=== PATIENT | male | born 1975 | race Caucasian/White ===

== ENCOUNTER 2018-05-03 10:27 | Inpatient (IN) | payer OTHER ==
[2018-05-03 11:26] VITALS: BMI 20.6
--- NOTE | 2018-05-03 11:30 | HP ---
CIWA Score Nausea/Vomitin Muscle Tremors: 3 Anxiety: 4-Mod. Anxious/Guarded Agitation: 0-Normal Activity Paroxysmal Sweats: No Perspiration Orientation: 2-Disoriented Date<2 days Tacttile Disturbances: 0-None Auditory Disturbances: 0-None Visual Disturbances: 0-None Headache: 2-Mild CIWA-Ar Total Score: 13 - Admission Criteria [facility] Guidelines: Admission for Medically Managed Detox: Requires at least one of the followin. CIWA greater than 12 2. Seizures within the past 24 hours 3. Delirium tremens within the past 24 hours 4. Hallucinations within the past 24 hours 5. Acute intervention needed for co occurring medical disorder 6. Acute intervention needed for co occurring psychiatric disorder 7. Severe withdrawal that cannot be handled at a lower level of care (continued vomiting, continued diarrhea, abnormal vital signs) requiring intravenous medication and/or fluids 8. Patient presents the following: CIWA greater than 12 Admission Criteria Met: Admission criteria met Admission ROS [facility] - HPI Chief Complaint: I shake too much if I don't drink, my animal assisted therapist said I need to come for detox, was throwing up, shaking too much, I couldn't handle trying to stop, I have to drink to stop the shaking. Allergies/Adverse Reactions: Allergies Allergy/AdvReac Type Severity Reaction Status Date / Time No Known Allergies Allergy Verified 05/03/18 11:29 History of Present Illness: 43 yo gentleman sent her for detox by outpatient program CASES rn social services as patient continued to drink as an outpatient. Denies seizures, unemployed, lives with parents. States he gets very sick, shaky unless he has a drink. States this is his first time in detox. Patient currently with low blood pressure - will hold BP meds for now. Exam Limitations: No Limitations - Ebola screening Have you traveled outside of the country in the last 21 days: No (N) Have you had contact with anyone from an Ebola affected area: No Have you been sick,other than usual withdrawal symptoms: No Do you have a fever: No - Review of Systems Constitutional: Loss of Appetite, Malaise, Changes in sleep EENT: reports: Blurred Vision Respiratory: reports: No Symptoms reported Cardiac: reports: No Symptoms Reported GI: reports: Nausea, Poor Appetite, Abdominal cramping : reports: Frequency Musculoskeletal: reports: No Symptoms Reported Integumentary: reports: No Symptoms Reported Neuro: reports: Headache, Weakness Endocrine: reports: No Symptoms Reported Hematology: reports: No Symptoms Reported Psychiatric: reports: Judgement Intact, Mood/Affect Appropiate, Anxious Other Systems: Reviewed and Negative Patient History - Patient Medical History Hx Anemia: No Hx Asthma: No Hx Cancer: No Hx Cardiac Disorders: No Hx Congestive Heart Failure: No Hx Hypertension: Yes (on meds) Hx Hypercholesterolemia: No Hx Pacemaker: No Hx Seizures: No Hx Diabetes: No Hx Gastrointestinal Disorders: No Hx Liver Disease: No Hx Genitourinary Disorders: No Hx Sexually Transmitted Disorders: No Hx Renal Disease (ESRD): No Hx Thyroid Disease: No Hx Human Immunodeficiency Virus (HIV): No Hx Hepatitis C: No Hx Depression: No Hx Suicide Attempt: No Hx Bipolar Disorder: No Hx Schizophrenia: No - Patient Surgical History Past Surgical History: No - PPD History Previous Implant?: Yes Documented Results: Negative w/o proof Implanted On Prior [facility] Admission?: No PPD to be Administered?: Yes - Reproductive History Patient is a Female of Child Bearing Age (11 -55 yrs old): No (male) - Smoking Cessation Smoking history: Never smoked - Substance & Tx. History Hx Alcohol Use: Yes Hx Substance Use: No Substance Use Type: Alcohol Hx Substance Use Treatment: Yes (outpatient rehab) - Substances Abused alcohol Route: Oral Frequency: Daily Amount used: three half pints ruben Age of first use: 14 Date of Last Use: 05/02/18 Family Disease History - Family Disease History Family Disease History: Diabetes: Father (living, ), Other: Father, Mother ( living - ), Brother (one - living), Daughter (one age 15, healthy) Admission Physical Exam S - Vital Signs Vital Signs: Vital Signs - 24 hr 05/03/18 11:24 Temperature 97.7 F Pulse Rate 90 Respiratory 18 Rate Blood Pressure 95/68 - Physical General Appearance: Yes: Nourished, Appropriately Dressed, Mild Distress, Thin, Anxious HEENTM: Yes: EOMI, Hearing grossly Normal, Normocephalic, Normal Voice, Pharynx Normal Respiratory: Yes: Normal Breath Sounds, No Respiratory Distress Neck: Yes: No masses,lesions,Nodules Breast: Yes: Breast Exam Deferred Cardiology: Yes: Regular Rhythm, Regular Rate Abdominal: Yes: Flat, Soft Genitourinary: Yes: Within Normal Limits Back: Yes: Normal Inspection Musculoskeletal: Yes: full range of Motion, Gait Steady Extremities: Yes: Normal Inspection, Normal Range of Motion, Non-Tender Neurological: Yes: Alert, Motor Strength 5/5, Normal Mood/Affect, Normal Response Integumentary: Yes: Normal Color, Warm Lymphatic: Yes: Within Normal Limits - Diagnostic (1) Alcohol dependence with uncomplicated withdrawal Current Visit: Yes Status: Chronic (2) HTN (hypertension) Current Visit: Yes Status: Chronic Qualifiers: Hypertension type: essential hypertension Qualified Code(s): I10 - Essential (primary) hypertension Cleared for Admission [facility] - Detox or Rehab [facility] Level of Care: Medically Managed Detox Regimen/Protocol: Librium [facility] Breath Alcohol Content Breath Alcohol Content: 0.259 Urine Drug Screen - Results Drug Screen Negative: Yes
[2018-05-03] MEDS ORDERED: ACETAMINOPHEN 325 MG TABLET (FP) PO PRN (11:43)
[2018-05-03] MEDS ORDERED: MENTHOL/PHENOL 1 EACH UD MM PRN (11:43)
[2018-05-03] MEDS ORDERED: MAGNESIUM HYDROX 2400MG/30ML ORAL SUSPENSION 30 ML CUP PO PRN (11:43)
[2018-05-03] MEDS ORDERED: P-EPHED 60MG/TRIPROLIDI 2.5MG TABLET PO PRN (11:43)
[2018-05-03] MEDS ORDERED: LOPERAMIDE HCL 2 MG CAPSULE PO PRN (11:43)
[2018-05-03] MEDS ORDERED: MAGNESIUM CITRATE 300 ML BOTTLE PO PRN (11:43)
[2018-05-03] MEDS ORDERED: MAG HYDROX/AL HYDROX/SIMETH 30 ML UNIT-DOSE CUP PO PRN (11:43)
[2018-05-03] MEDS ORDERED: guaiFENesin/D-METHORPHAN HB 10 ML UNIT-DOSE CUPS PO PRN (11:43)
[2018-05-03] MEDS ORDERED: IBUPROFEN 400 MG TABLET (FP) PO PRN (11:43)
[2018-05-03] MEDS: chlordiazePOXIDE HCL 25 MG CAPSULE PO PRN ×2 (14:34→17:50)
[2018-05-03] MEDS: chlordiazePOXIDE HCL 25 MG CAPSULE PO SCH ×2 (17:00→22:23)
[2018-05-03] MEDS: MELATONIN 5 MG TABLETS PO PRN (22:23)
[2018-05-03] MEDS: THIAMINE HCL 100 MG TABLET (FP) PO SCH (22:23)
[2018-05-03 22:49] LABS: URINE APPEARANCE SLCLOUDY; URINE BILIRUBIN NEGATIVE (<2.0 mg/dL); URINE COLOR YELLOW; URINE GLUCOSE (UA) NEGATIVE (NEGATIVE); URINE KETONE NEGATIVE (NEGATIVE); URINE LEUK ESTERASE NEGATIVE (NEGATIVE); URINE NITRITE NEGATIVE (NEGATIVE); URINE PROTEIN 1+ (NEGATIVE); URINE UROBILINOGEN 4.0 E.U/dl mg/dL (0.2-1.0)
[2018-05-03 22:56] LABS: EPI CELLS RARE /HPF (FEW); URINE HYALINE CAST 4 /lpf; URINE MUCUS RARE
[2018-05-04] MEDS: chlordiazePOXIDE HCL 25 MG CAPSULE PO SCH ×4 (05:52→22:22)
--- NOTE | 2018-05-04 09:58 | PN ---
S CIWA - CIWA Score Nausea/Vomitin-Mild Nausea/No Vomiting Muscle Tremors: 3 Anxiety: 1-Mildly Anxious Agitation: 3 Paroxysmal Sweats: 1-Minimal Palms Moist Orientation: 1-Uncertain about Date Tacttile Disturbances: 1-Very Mild Itch/Numbness Auditory Disturbances: 1-Very Mild Visual Disturbances: 0-None Headache: 1-Very Mild CIWA-Ar Total Score: 13 [facility] Progress Note (SOAP) Subjective: tremor anxiety sweat trouble sleep at night Objective: 05/04/18 09:57 Vital Signs Temperature 98.2 F 05/04/18 09:25 Pulse Rate 111 H 05/04/18 09:25 Respiratory Rate 16 05/04/18 09:25 Blood Pressure 103/66 05/04/18 09:25 O2 Sat by Pulse Oximetry (%) Laboratory Last Values Urine Color Yellow 05/03/18 22:30 Urine Appearance Slcloudy 05/03/18 22:30 Urine pH 5.0 (5.0-8.0) 05/03/18 22:30 Ur Specific [place] 1.012 (1.010-1.035) 05/03/18 22:30 Urine Protein 1+ (NEGATIVE) H 05/03/18 22:30 Urine Glucose (UA) Negative (NEGATIVE) 05/03/18 22:30 Urine Ketones Negative (NEGATIVE) 05/03/18 22:30 Urine Blood Negative (NEGATIVE) 05/03/18 22:30 Urine Nitrite Negative (NEGATIVE) 05/03/18 22:30 Urine Bilirubin Negative (<2.0 mg/dL) 05/03/18 22:30 Urine Urobilinogen 4.0 e.u/dl mg/dL (0.2-1.0) 05/03/18 22:30 Ur Leukocyte Esterase Negative (NEGATIVE) 05/03/18 22:30 Urine WBC (Auto) 5 /hpf (3-5) 05/03/18 22:30 Urine RBC (Auto) <1 /hpf (0-3) 05/03/18 22:30 Ur Epithelial Cells Rare /HPF (FEW) 05/03/18 22:30 Hyaline Casts 4 /lpf 05/03/18 22:30 Urine Mucus Rare 05/03/18 22:30 lab noted Assessment: 05/04/18 09:57 withdrawal sx Plan: continue detox
[2018-05-04] MEDS: PRENATAL VITAMINS W/ FOLIC ACID TABLET (FP) PO SCH (10:06)
[2018-05-04 10:30] LABS: HEMATOCRIT 31.5 % (35.4-49); HEMOGLOBIN 10.2 GM/dL (11.7-16.9); MCH 35.1 pg (25.7-33.7); MCHC 32.3 g/dl (32.0-35.9); MEAN CELL VOLUME 108.5 fl (80-96); MEAN PLT VOLUME 8.9 fl (7.5-11.1); PLATELET COUNT 107 K/MM3 (134-434); RDW 16.1 % (11.9-15.9); WHITE BLOOD COUNT 4.2 K/mm3 (4.0-10.0)
[2018-05-04 10:47] LABS: ALK PHOS 48 U/L (45-117); ANION GAP 12 MMOL/L (8-16); BILIRUBIN,TOTAL 0.6 mg/dL (0.2-1); BLOOD UREA NITROGEN 24 mg/dL (7-18); CALCIUM 8.2 mg/dL (8.5-10.1); CHLORIDE 102 mmol/L (98-107); CO2 24 mmol/L (21-32); CREATININE 1.6 mg/dL (0.55-1.3); GLUCOSE,RANDOM 99 mg/dL (74-106); POTASSIUM 3.2 mmol/L (3.5-5.1); SGOT/AST 72 U/L (15-37); SGPT/ALT 42 U/L (13-61); SODIUM 138 mmol/L (136-145); TOT PROT 6.1 g/dl (6.4-8.2)
--- NOTE | 2018-05-04 13:47 | EKG ---
Test Reason : Blood Pressure : / mmHG Vent. Rate : 090 BPM Atrial Rate : 090 BPM P-R Int : 152 ms QRS Dur : 074 ms QT Int : 368 ms P-R-T Axes : 066 040 056 degrees QTc Int : 450 ms NORMAL SINUS RHYTHM NORMAL ECG NO PREVIOUS ECGS AVAILABLE Confirmed by WAGNER GASTELUM MD ([id number]) on 05/04/2018 1:46:33 PM Referred By: Confirmed By:WAGNER GASTELUM MD
[2018-05-04] MEDS: chlordiazePOXIDE HCL 25 MG CAPSULE PO PRN (15:42)
--- NOTE | 2018-05-04 17:11 | PN ---
[facility] Progress Note Note: called by nurse stated patient k is 3.2 Laboratory Last Values WBC 4.2 K/mm3 (4.0-10.0) 05/04/18 07:30 RBC 2.90 M/mm3 (4.00-5.60) L 05/04/18 07:30 Hgb 10.2 GM/dL (11.7-16.9) L 05/04/18 07:30 Hct 31.5 % (35.4-49) L 05/04/18 07:30 MCV 108.5 fl (80-96) H 05/04/18 07:30 MCH 35.1 pg (25.7-33.7) H 05/04/18 07:30 MCHC 32.3 g/dl (32.0-35.9) 05/04/18 07:30 RDW 16.1 % (11.9-15.9) H 05/04/18 07:30 Plt Count 107 K/MM3 (134-434) L 05/04/18 07:30 MPV 8.9 fl (7.5-11.1) 05/04/18 07:30 Sodium 138 mmol/L (136-145) 05/04/18 07:30 Potassium 3.2 mmol/L (3.5-5.1) L 05/04/18 07:30 Chloride 102 mmol/L (98-107) 05/04/18 07:30 Carbon Dioxide 24 mmol/L (21-32) 05/04/18 07:30 Anion Gap 12 MMOL/L (8-16) 05/04/18 07:30 BUN 24 mg/dL (7-18) H 05/04/18 07:30 Creatinine 1.6 mg/dL (0.55-1.3) H 05/04/18 07:30 Creat Clearance w eGFR 47.19 (>60) 05/04/18 07:30 Random Glucose 99 mg/dL (74-106) 05/04/18 07:30 Calcium 8.2 mg/dL (8.5-10.1) L 05/04/18 07:30 Total Bilirubin 0.6 mg/dL (0.2-1) 05/04/18 07:30 AST 72 U/L (15-37) H 05/04/18 07:30 ALT 42 U/L (13-61) 05/04/18 07:30 Alkaline Phosphatase 48 U/L (45-117) 05/04/18 07:30 Total Protein 6.1 g/dl (6.4-8.2) L 05/04/18 07:30 Albumin 3.0 g/dl (3.4-5.0) L 05/04/18 07:30 Urine Color Yellow 05/03/18 22: Urine Appearance Slcloudy 05/03/18 22: Urine pH 5.0 (5.0-8.0) 05/03/18 22:30 Ur Specific [place] 1.012 (1.010-1.035) 05/03/18 22: Urine Protein 1+ (NEGATIVE) H 05/03/18 22:30 Urine Glucose (UA) Negative (NEGATIVE) 05/03/18 22:30 Urine Ketones Negative (NEGATIVE) 05/03/18 22:30 Urine Blood Negative (NEGATIVE) 05/03/18 22:30 Urine Nitrite Negative (NEGATIVE) 05/03/18 22:30 Urine Bilirubin Negative (<2.0 mg/dL) 05/03/18 22:30 Urine Urobilinogen 4.0 e.u/dl mg/dL (0.2-1.0) 05/03/18 22:30 Ur Leukocyte Esterase Negative (NEGATIVE) 05/03/18 22:30 Urine WBC (Auto) 5 /hpf (3-5) 05/03/18 22:30 Urine RBC (Auto) <1 /hpf (0-3) 05/03/18 22:30 Ur Epithelial Cells Rare /HPF (FEW) 05/03/18 22:30 Hyaline Casts 4 /lpf 05/03/18 22:30 Urine Mucus Rare 05/03/18 22:30 RPR Titer Nonreactive (NONREACTIVE) 05/04/18 07:30 k dure 20 meq po now then daily encourage orl fluid repeat cmp in am
[2018-05-04] MEDS ORDERED: POTASSIUM CHLORIDE TABS 20 MEQ TABLET.ER (FP) PO ONE (17:15)
[2018-05-04] MEDS: THIAMINE HCL 100 MG TABLET (FP) PO SCH (22:22)
[2018-05-04] MEDS: MELATONIN 5 MG TABLETS PO PRN (22:23)
[2018-05-05] MEDS: chlordiazePOXIDE HCL 25 MG CAPSULE PO SCH ×2 (08:03→10:27)
[2018-05-05] MEDS: POTASSIUM CHLORIDE TABS 20 MEQ TABLET.ER (FP) PO SCH (10:26)
[2018-05-05] MEDS: PRENATAL VITAMINS W/ FOLIC ACID TABLET (FP) PO SCH (10:26)
--- NOTE | 2018-05-05 10:52 | PN ---
S CIWA - CIWA Score Nausea/Vomitin-Mild Nausea/No Vomiting Muscle Tremors: 3 Anxiety: 2 Agitation: 1-Slight > Activity Paroxysmal Sweats: 2 Orientation: 0-Oriented Tacttile Disturbances: 0-None Auditory Disturbances: 0-None Visual Disturbances: 0-None Headache: 0-None Present CIWA-Ar Total Score: 9 [facility] Progress Note (SOAP) Subjective: PATIENT C/O SHAKES, SWEATING AND ANXIETY. Objective: 05/05/18 10:51 Vital Signs Temperature 98.1 F 05/05/18 09:06 Pulse Rate 102 H 05/05/18 09:06 Respiratory Rate 16 05/05/18 09:06 Blood Pressure 95/56 L 05/05/18 09:06 O2 Sat by Pulse Oximetry (%) Vital Signs Temperature 98.1 F 05/05/18 09:06 Pulse Rate 102 H 05/05/18 09:06 Respiratory Rate 16 05/05/18 09:06 Blood Pressure 95/56 L 05/05/18 09:06 O2 Sat by Pulse Oximetry (%) Laboratory Tests 05/03/18 05/04/18 05/04/18 22:30 07:30 07:30 WBC 4.2 RBC 2.90 L Hgb 10.2 L Hct 31.5 L MCV 108.5 H MCH 35.1 H MCHC 32.3 RDW 16.1 H Plt Count 107 L MPV 8.9 Sodium 138 Potassium 3.2 L Chloride 102 Carbon Dioxide 24 Anion Gap 12 BUN 24 H Creatinine 1.6 H Creat Clearance w eGFR 47.19 Random Glucose 99 Calcium 8.2 L Total Bilirubin 0.6 AST 72 H ALT 42 Alkaline Phosphatase 48 Total Protein 6.1 L Albumin 3.0 L Urine Color Yellow Urine Appearance Slcloudy Urine pH 5.0 Ur Specific [place] 1.012 Urine Protein 1+ H Urine Glucose (UA) Negative Urine Ketones Negative Urine Blood Negative Urine Nitrite Negative Urine Bilirubin Negative Urine Urobilinogen 4.0 e.u/dl Ur Leukocyte Esterase Negative Urine WBC (Auto) 5 Urine RBC (Auto) <1 Ur Epithelial Cells Rare Hyaline Casts 4 Urine Mucus Rare RPR Titer 05/04/18 07:30 WBC RBC Hgb Hct MCV MCH MCHC RDW Plt Count MPV Sodium Potassium Chloride Carbon Dioxide Anion Gap BUN Creatinine Creat Clearance w eGFR Random Glucose Calcium Total Bilirubin AST ALT Alkaline Phosphatase Total Protein Albumin Urine Color Urine Appearance Urine pH Ur Specific [place] Urine Protein Urine Glucose (UA) Urine Ketones Urine Blood Urine Nitrite Urine Bilirubin Urine Urobilinogen Ur Leukocyte Esterase Urine WBC (Auto) Urine RBC (Auto) Ur Epithelial Cells Hyaline Casts Urine Mucus RPR Titer Nonreactive PE: ALERT AND ORIENTED X 3 ANXIOUS MILD FACIAL MOISTURE AMB AD ANGELINA EXT FULL ROM, +_TREMORS Assessment: 05/05/18 10:52 WITHDRAWAL SX Plan: CONTINUE DETOX ENCOURAGE ORAL FLUIDS REPEAT POTASSIUM LEVEL FOR D/C IN AM CONTINUE TO MONITOR
[2018-05-05 11:09] LABS: ALBUMIN 2.9 g/dl (3.4-5.0); ALK PHOS 50 U/L (45-117); ANION GAP 12 MMOL/L (8-16); BILIRUBIN,TOTAL 0.4 mg/dL (0.2-1); BLOOD UREA NITROGEN 20 mg/dL (7-18); CALCIUM 8.8 mg/dL (8.5-10.1); CHLORIDE 103 mmol/L (98-107); CO2 23 mmol/L (21-32); CREATININE 1.1 mg/dL (0.55-1.3); GLUCOSE,RANDOM 97 mg/dL (74-106); POTASSIUM 3.5 mmol/L (3.5-5.1); SGOT/AST 45 U/L (15-37); SGPT/ALT 36 U/L (13-61); SODIUM 138 mmol/L (136-145); TOT PROT 5.9 g/dl (6.4-8.2)
[2018-05-05] MEDS: chlordiazePOXIDE 5 MG CAPSULE PO SCH ×2 (17:27→22:07)
[2018-05-05] MEDS: MELATONIN 5 MG TABLETS PO PRN (22:07)
[2018-05-05] MEDS: THIAMINE HCL 100 MG TABLET (FP) PO SCH (22:07)
[2018-05-06] MEDS: chlordiazePOXIDE 5 MG CAPSULE PO SCH ×2 (06:18→10:11)
[2018-05-06] MEDS: PRENATAL VITAMINS W/ FOLIC ACID TABLET (FP) PO SCH (10:10)
[2018-05-06] MEDS: POTASSIUM CHLORIDE TABS 20 MEQ TABLET.ER (FP) PO SCH (10:10)
--- NOTE | 2018-05-06 10:15 | PN ---
[facility] Progress Note (SOAP) Subjective: interrupted sleep sweats Objective: 05/06/18 10:14 Vital Signs Temperature 97.7 F 05/06/18 09:20 Pulse Rate 93 H 05/06/18 09:20 Respiratory Rate 18 05/06/18 09:20 Blood Pressure 103/73 05/06/18 09:20 O2 Sat by Pulse Oximetry (%) aaox3 ambulating no acute distress Assessment: 05/06/18 10:14 mild withdrawal sx Plan: continue detox increase fluids d/c in am
[2018-05-06] MEDS: chlordiazePOXIDE HCL 10 MG CAPSULE PO SCH ×2 (17:38→22:25)
[2018-05-06] MEDS: MELATONIN 5 MG TABLETS PO PRN (22:26)
[2018-05-06] MEDS: THIAMINE HCL 100 MG TABLET (FP) PO SCH (22:26)
[2018-05-07] MEDS: chlordiazePOXIDE HCL 10 MG CAPSULE PO SCH (05:25)
--- NOTE | 2018-05-07 09:06 | DS ---
[facility] Detox Discharge Summary Admission Date: 05/03/18 Discharge Date: 05/07/18 - History Present History: Alcohol Dependence - Physical Exam Results Vital Signs: Vital Signs Temperature 97.9 F 05/07/18 06:00 Pulse Rate 87 05/07/18 06:00 Respiratory Rate 18 05/07/18 06:00 Blood Pressure 93/70 05/07/18 06:00 O2 Sat by Pulse Oximetry (%) - Treatment Hospital Course: Detox Protocol Followed, Detoxed Safely, Responded well, Discharged Condition Good, Rehab Referral Accepted - Medication Discharge Medications: Ambulatory Orders Losartan 50Mg/Hctz 12.5MG [Hyzaar -] 1 tab PO DAILY 05/03/18 Metoprolol Tartrate [Lopressor] 100 mg PO DAILY 05/03/18 - Diagnosis (1) Alcohol dependence with uncomplicated withdrawal Current Visit: Yes Status: Chronic (2) HTN (hypertension) Current Visit: Yes Status: Chronic Qualifiers: Hypertension type: essential hypertension Qualified Code(s): I10 - Essential (primary) hypertension - AMA Did Patient Leave Against Medical Advice: No (referred to [facility] rehab)
[2018-05-07 09:09] VITALS: BP 112/78; PULSE 106; TEMP 98.4
== END 2018-05-07 09:15 | disposition home or self-care (01) | DRG 775 ==
LOC: YASAS 10:27 → Y6N 11:56
PROVIDERS: ADMIT Neuromusculoskeletal Medicine & OMM; ATTEND Neuromusculoskeletal Medicine & OMM
PROC: HZ2ZZZZ Detoxification Services for Substance Abuse Treatment (ICD-10-PCS; principal; 2018-05-03)
DX: F10.230 Alcohol dependence with withdrawal, uncomplicated (principal); I10 Essential (primary) hypertension
CPT/HCPCS: 36415; 80053; 81003; 81015; 84132; 85027; 86593; 93005; 93010